=== PATIENT | female | born 1965 | race Caucasian/White ===

== ENCOUNTER 2019-12-11 04:54 | Emergency (ER) | payer OTHER ==
[~2019-12-11] VITALS: Ht 167.6 cm; Wt 83.9 kg
[2019-12-11 04:54] VITALS: BP 137/73
--- NOTE | 2019-12-11 04:58 | NUR ---
PT CAME INTO THE ED C/O "A HUTCH FELL WITH LGASS FELL ON ME AND CUT ME ON THE R SHOULDER BLADE" MINIMAL BLEEDING NOTED. LAC 4 CM LENGTH.PT DENIES KO. TDAP UTD. PT AAOX4, VSS. AWAITING FOR MD DELGADO
--- NOTE | 2019-12-11 05:25 | NUR ---
DR POPE AT BEDSIDE
--- NOTE | 2019-12-11 05:44 | NUR ---
Patient discharged to home in stable condition. Written and verbal after care instructions given. Patient verbalizes understanding of instruction.
== END 2019-12-11 05:44 | disposition home or self-care (01) ==
LOC: ER 04:54
DX: S41.011A Laceration without foreign body of right shoulder, initial encounter (principal); W26.8XXA Contact with other sharp object(s), not elsewhere classified, initial encounter; Y93.89 Activity, other specified; Y92.89 Other specified places as the place of occurrence of the external cause; Y99.8 Other external cause status
CPT/HCPCS: 12002; 99283; A6403

== ENCOUNTER 2019-12-11 11:51 | Emergency (ER) | payer OTHER ==
[~2019-12-11] VITALS: Ht 167.6 cm; Wt 83.9 kg
[2019-12-11 11:57] VITALS: BP 137/80
--- NOTE | 2019-12-11 12:03 | NUR ---
BIB SELF 54 YEAR OLD FEMALE C/O HEADACHE, DIZZINESS SINCE 0400 S/P HEAVY GLASS FELL IN HER HEAD. ALERT AND OREINTED X4, BREATHING EVEN AND UNLABORED WITH NO DISTRESS NOTED. SKIN INTACT AND WARM TO TOUCH. WAITING TO BE SEEN BY
--- NOTE | 2019-12-11 12:29 | NUR ---
GABBY JONES AT BEDSIDE TOOK PATIENT FOR CT SCAN
--- NOTE | 2019-12-11 13:10 | NUR ---
Patient discharged to home in stable condition. Written and verbal after care instructions given. Patient verbalizes understanding of instruction.
== END 2019-12-11 13:11 | disposition home or self-care (01) ==
LOC: ER 11:58
DX: S09.8XXA Other specified injuries of head, initial encounter (principal); R51 Headache; R42 Dizziness and giddiness; Z60.2 Problems related to living alone; W18.09XA Striking against other object with subsequent fall, initial encounter; Y93.89 Activity, other specified; Y92.89 Other specified places as the place of occurrence of the external cause; Y99.8 Other external cause status
CPT/HCPCS: 70450-TC